=== PATIENT | male | born 2000 | race Two or more races ===

== ENCOUNTER 2023-05-05 01:55 | Emergency (ER) | payer OTHER ==
[2023-05-05] MEDS: Sodium Chloride 0.9% 2.5 ML Syringe FLUSH PRN (02:04)
[2023-05-05] MEDS: Sodium Chloride 0.9% 10 ML Syringe FLUSH PRN (02:04)
[2023-05-05 02:09] LABS: BASOPHILS ABSOLUTE AUTO 0.06 K/uL (0.00-0.20); BASOPHILS PERCENT AUTO 0.4 % (0.0-1.0); EOSINOPHILS ABSOLUTE AUTO 0.08 K/uL (0.00-0.45); EOSINOPHILS PERCENT AUTO 0.5 % (0.0-6.0); HEMATOCRIT 45.6 % (42.0-52.0); HEMOGLOBIN 15.7 g/dL (14.0-18.0); IMMATURE GRAN ABSOLUTE AUTO 0.06 K/uL (0.00-0.05); IMMATURE GRAN PERCENT AUTO 0.4 % (0.0-0.4); LYMPHOCYTES ABSOLUTE AUTO 1.62 K/uL (1.00-4.80); LYMPHOCYTES PERCENT AUTO 9.8 % (24.0-44.0); MEAN CORPUSCULAR HEMOGLOBIN 28.7 pg (28.0-32.0); MEAN CORPUSCULAR HGB CONC 34.4 g/dL (32.0-36.0); MEAN CORPUSCULAR VOLUME 83.4 fL (83.0-99.0); MEAN PLATELET VOLUME 9.4 fL (9.4-12.4); MONOCYTES ABSOLUTE AUTO 0.88 K/uL (0.00-0.80); MONOCYTES PERCENT AUTO 5.3 % (0.0-8.0); NEUTROPHILS ABSOLUTE AUTO 13.78 K/uL (1.80-7.70); NEUTROPHILS PERCENT AUTO 83.6 % (41.0-71.0); PLATELET COUNT,PLT 272 K/uL (150-400); RED BLOOD CELL COUNT 5.47 M/uL (4.52-5.90); WHITE BLOOD CELL COUNT,WBC 16.48 K/uL (3.9-11.3)
[2023-05-05] MEDS: Iopamidol 755 MG/ML 500 ML Multipack Bottle IVPUSH STA (02:20)
[2023-05-05 02:41] LABS: INR 1.09 (0.86-1.11); PTT,PARTIAL THROMBOPLSTIN TIME 23.9 SEC (23.9-30.7)
[2023-05-05 02:44] LABS: A/G RATIO 1.2 (0.9-1.6); ALBUMIN 4.3 g/dL (3.4-5.0); BILIRUBIN TOTAL 0.5 mg/dL (0.2-1.0); CALCIUM 9.1 mg/dL (8.5-10.1); CARBON DIOXIDE,CO2 23.9 mmol/L (21.0-32.0); EST CRCL DRUG DOSING (CG) 86.21 mL/min; POTASSIUM,K 3.3 mmol/L (3.5-5.1); PROTEIN TOTAL,TP 7.9 g/dL (6.4-8.2)
== END 2023-05-05 03:42 ==
LOC: MW.ED 01:55
DX: S10.93XA Contusion of unspecified part of neck, initial encounter (principal); X83.8XXA Intentional self-harm by other specified means, initial encounter; Y92.149 Unspecified place in prison as the place of occurrence of the external cause
CPT/HCPCS: 36415; 70450; 70498; 80053; 82550; 85025; 85610; 85730; 99285; J3490; Q9967

== ENCOUNTER 2024-05-03 13:49 | Emergency (ER) | payer MEDICAID, OTHER ==
[2024-05-03 14:13] LABS: BASOPHILS ABSOLUTE AUTO 0.05 K/uL (0.00-0.20); BASOPHILS PERCENT AUTO 0.8 % (0.0-1.0); EOSINOPHILS ABSOLUTE AUTO 0.06 K/uL (0.00-0.45); EOSINOPHILS PERCENT AUTO 0.9 % (0.0-6.0); HEMATOCRIT 46.3 % (42.0-52.0); HEMOGLOBIN 15.7 g/dL (14.0-18.0); IMMATURE GRAN ABSOLUTE AUTO 0.01 K/uL (0.00-0.05); IMMATURE GRAN PERCENT AUTO 0.2 % (0.0-0.4); LYMPHOCYTES ABSOLUTE AUTO 1.16 K/uL (1.00-4.80); LYMPHOCYTES PERCENT AUTO 17.8 % (24.0-44.0); MEAN CORPUSCULAR HEMOGLOBIN 28.1 pg (28.0-32.0); MEAN CORPUSCULAR HGB CONC 33.9 g/dL (32.0-36.0); MEAN CORPUSCULAR VOLUME 82.8 fL (83.0-99.0); MONOCYTES ABSOLUTE AUTO 0.47 K/uL (0.00-0.80); MONOCYTES PERCENT AUTO 7.2 % (0.0-8.0); NEUTROPHILS ABSOLUTE AUTO 4.77 K/uL (1.80-7.70); NEUTROPHILS PERCENT AUTO 73.1 % (41.0-71.0); PLATELET COUNT,PLT 245 K/uL (150-400); RED BLOOD CELL COUNT 5.59 M/uL (4.52-5.90); WHITE BLOOD CELL COUNT,WBC 6.52 K/uL (3.9-11.3)
[2024-05-03 14:42] LABS: A/G RATIO 1.2 (0.9-1.6); ALBUMIN 4.4 g/dL (3.4-5.0); BILIRUBIN TOTAL 0.3 mg/dL (0.2-1.0); CALCIUM 9.6 mg/dL (8.5-10.1); CARBON DIOXIDE,CO2 27.9 mmol/L (21.0-32.0); EST CRCL DRUG DOSING (CG) 100.79 mL/min; POTASSIUM,K 4.3 mmol/L (3.5-5.1); PROTEIN TOTAL,TP 8.1 g/dL (6.4-8.2)
[2024-05-03 16:15] LABS: APPEARANCE,URINE CLOUDY; BILIRUBIN,URINE NEGATIVE (NEGATIVE); COLOR,URINE YELLOW; GLUCOSE,URINE NEGATIVE (NEGATIVE); KETONES,URINE NEGATIVE (NEGATIVE); LEUKOCYTE ESTERASE,URINE NEGATIVE (NEGATIVE); NITRITE,URINE NEGATIVE (NEGATIVE); OCCULT BLOOD,URINE NEGATIVE (NEGATIVE); PROTEIN,URINE NEGATIVE (NEGATIVE); UROBILINOGEN,URINE 0.2 EU/dL (<2.0)
[2024-05-03] MEDS: Ibuprofen 600 MG Tab PO ONE (16:49)
== END 2024-05-03 16:56 | disposition home or self-care (01) ==
LOC: MW.ED 13:49
DX: N50.811 Right testicular pain (principal); Z75.8 Other problems related to medical facilities and other health care
CPT/HCPCS: 36415; 76870; 80053; 81003; 85025; 93976; 99284; A9270; 99283